=== PATIENT | female | born 1970 | race Caucasian/White ===

== ENCOUNTER 2022-12-05 16:53 | Emergency (ER) | payer OTHER, MEDICAID, SELFPAY ==
[2022-12-05 17:52] VITALS: BP 162/84; PULSE 88; RESP 16; TEMP 36.3; O2SAT 97; BMI 27.5
--- NOTE | 2022-12-05 17:52 | ED.ABDPAIN ---
HPI - Abdominal Pain General Chief Complaint: Back Pain/Injury Stated Complaint: R flank pain, seen at [facility] Related Data Allergies Allergy/AdvReac Type Severity Reaction Status Date / Time acetaminophen [From Percocet] Allergy Palpitation Verified 12/05/22 17:56 s aripiprazole [From Abilify] Allergy Unknown Verified 12/05/22 17:57 oxycodone [From Percocet] Allergy Palpitation Verified 12/05/22 17:56 s [facility] Social History Social History Advance Directives: No Advance Directives Information Provided: No Physical Exam ED Vital Signs: BMI result Body Mass Index 27.5 Course Course Course Narrative: RME: 52yo F c/o R flank pain x yesterday. Was seen at [facility] d/c'd around 1pm, states given multiple pain medications and had CT that showed stone inside kidney otherwise unremarkable. actively vomiting & dry heaving during triage Labs, UA ordered, Records requested from [facility] Full HPI, ROS and PE to be performed by primary ED provider. Medical Decision Making Lab Data 12/05/22 19:13 12/05/22 19:13 Labs: Lab Results 12/05/22 Range/Units 19:13 WBC 10.8 (4.8-10.8) X10*3/uL RBC 4.69 (4.20-5.50) X10*6/uL Hgb 14.0 (12.0-16.0) g/dl Hct 40.6 (37.0-47.0) % MCV 86.6 (80.0-98.0) fL MCH 29.9 (27.0-33.0) pg MCHC 34.5 (31.0-35.0) g/dl RDW 13.9 (11.0-16.0) % Plt Count 245 (160-400) X10*3/uL MPV 10.6 (9.4-12.3) fL Immature Gran % (Auto) 0.4 (0.0-0.4) % Neut % (Auto) 81.7 H (45-73) % Lymph % (Auto) 13.8 L (20-40) % Kingfisher % (Auto) 3.6 (2-11) % Eos % (Auto) 0.3 (0-4) % Baso % (Auto) 0.2 (0-2) % Lymph # (Auto) 1.5 (1.2-4.9) X10*3/uL Kingfisher # (Auto) 0.4 (0.1-1.2) X10*3/uL Eos # (Auto) 0.0 (0.0-0.4) X10*3/uL Baso # (Auto) 0.0 (0.0-0.2) X10*3/uL Abs Immat Gran (auto) 0.04 H (0.00-0.03) X10*3/uL Absolute Neuts (auto) 8.9 H (2.0-8.3) x10*3/uL Absolute Nucleated RBC 0.000 (0.0-0.012) X10*3/uL Nucleated RBC % (auto) 0.0 (0.0-0.2) /100WBC Sodium 138 (135-145) mmol/L Potassium 4.2 (3.3-5.1) mmol/L Chloride 105 (96-108) mmol/L Carbon Dioxide 23 (22-29) mmol/L Anion Gap 14 (12-20) BUN 9 (9-16) mg/dL Creatinine 0.73 (0.5-1.4) mg/dL Estim Creat Clear Calc 82.8 Estimated GFR > 60 Random Glucose 114 (60-115) mg/dL Calcium 9.8 (8.4-10.2) mg/dL Magnesium 1.9 (1.6-2.6) mg/dL Total Bilirubin 1.2 H (0.0-1.0) mg/dL Direct Bilirubin 0.3 (0.0-0.5) mg/dL AST 16 (5-31) U/L ALT 15 (0-31) U/L Alkaline Phosphatase 89 (39-117) U/L Total Protein 7.3 (6.5-8.0) g/dL Albumin 4.5 (3.5-5.0) g/dL Lipase 13 (8-78) U/L Discharge Plan Discharge Clinical Impression: Flank pain Patient Disposition: Left W/O Completing Treatment Discharge Date/Time: 12/05/22 23:46
[2022-12-05 19:20] LABS: MANUAL DIFF FLAG NO
[2022-12-05 19:21] LABS: Basophils Percent Auto 0.2 % (0-2); Eosinophils Percent Auto 0.3 % (0-4); Hematocrit 40.6 % (37.0-47.0); Imm Gran Abs Auto 0.04 X10*3/uL (0.00-0.03); Imm Gran Pct Auto 0.4 % (0.0-0.4); Lymphocytes Absolute Auto 1.5 X10*3/uL (1.2-4.9); Lymphocytes Percent Auto 13.8 % (20-40); Mean Corpuscular HGB Conc 34.5 g/dl (31.0-35.0); Mean Corpuscular Hemoglobin 29.9 pg (27.0-33.0); Mean Corpuscular Volume 86.6 fL (80.0-98.0); Mean Platelet Volume 10.6 fL (9.4-12.3); Monocytes Absolute Auto 0.4 X10*3/uL (0.1-1.2); Monocytes Percent Auto 3.6 % (2-11); Neutrophils Absolute Auto 8.9 x10*3/uL (2.0-8.3); Neutrophils Percent Auto 81.7 % (45-73); Platelet Count 245 X10*3/uL (160-400); Red Blood Count 4.69 X10*6/uL (4.20-5.50); Red Cell Distribution Width 13.9 % (11.0-16.0); White Blood Count 10.8 X10*3/uL (4.8-10.8)
[2022-12-05 19:35] LABS: Alanine Aminotransferase 15 U/L (0-31); Albumin Level 4.5 g/dL (3.5-5.0); Alkaline Phosphatase 89 U/L (39-117); Anion Gap 14 (12-20); Aspartate Amino Transferase 16 U/L (5-31); Bilirubin Direct 0.3 mg/dL (0.0-0.5); Bilirubin Total 1.2 mg/dL (0.0-1.0); Blood Urea Nitrogen 9 mg/dL (9-16); Calcium 9.8 mg/dL (8.4-10.2); Carbon Dioxide 23 mmol/L (22-29); Chloride 105 mmol/L (96-108); Creatinine Clr Calc Pharmacy 82.8; Estimated Glomerular Filt Rate > 60; Glucose Random 114 mg/dL (60-115); Lipase 13 U/L (8-78); Magnesium 1.9 mg/dL (1.6-2.6); Potassium 4.2 mmol/L (3.3-5.1); Sodium 138 mmol/L (135-145); Total Protein 7.3 g/dL (6.5-8.0)
== END 2022-12-05 23:46 | disposition left against medical advice (07) ==
PROVIDERS: Physician Assistant; Emergency Provider Emergency Medicine
DX: R10.9 Unspecified abdominal pain (principal); M54.50 Low back pain, unspecified; Z79.899 Other long term (current) drug therapy
CPT/HCPCS: 36415; 80048; 80076; 83690; 83735; 85025; 99281; 99283

== ENCOUNTER 2024-11-25 07:47 | Outpatient (AMB) | payer OTHER, MEDICAID, SELFPAY ==
--- OUTSIDE RECORDS SUMMARY | 2024-11-25 07:50 | XMS_ITS | Clinical Summary ---
Author Organization [address] [facility] Address [address] [place] [address] Phone Care Team Providers Care Ritual Circumciser Name Role Phone Mariana Child MD Primary Care Provider [phone] Allergies Active Allergy Reactions Criticality Noted Date Comments Aripiprazole 12/25/2022 Oxycodone-Acetaminophen 12/25/2022 Tramadol 12/25/2022 Medications celecoxib (CeleBREX) 200 mg capsule Take 1 capsule (200 mg total) by mouth 2 (two) times a day. 3 Active divalproex (DEPAKOTE) [address] tablet Take 1 tablet (500 mg total) by mouth 2 (two) times a day. 4 Active loratadine (CLARITIN) 10 mg tablet Take 1 tablet (10 mg total) by mouth 1 (one) time each day. 4 Active cyclosporine (RESTASIS OPHT) apply to the eye. Active meloxicam (Mobic) 15 mg tablet Take 1 tablet (15 mg total) by mouth 1 (one) time each day. 4 Active semaglutide (Rybelsus) 14 mg tablet Take 1 tablet (14 mg total) by mouth 1 (one) time each day. 3 Active acetaminophen (TYLENOL) 500 mg tablet Take 1 tablet (500 mg total) by mouth every 6 (six) hours if needed. 3 Active polyethylene glycol (MIRALAX) 17 gram packet Take 1 Packet by mouth daily as needed for Constipation. - Oral Active bismuth subsalicylate (PEPTO BISMOL) 262 mg chewable tablet Take 15 mL by mouth every 6 hours as needed for Indigestion for up to 10 days. - Oral Active montelukast (SINGULAIR) 10 mg tablet TAKE 1 TABLET BY MOUTH EVERYDAY AT BEDTIME 90 tablet 1 4 Active hydroxychloroquin e (PLAQUENIL) 200 mg tablet Take 1 tablet (200 mg total) by mouth 1 (one) time each day. 30 tablet 3 5 Active lamoTRIgine (LaMICtal) 150 mg tablet Take 1 tablet (150 mg total) by mouth 1 (one) time each day. 5 Active nicotine (NICODERM CQ) 14 mg/[address] 1 patch on the skin 1 (one) time each day at the same time. 30 each 2 5 Active albuterol HFA (PROAIR HFA ; PROVENTIL HFA ; VENTOLIN HFA) 90 mcg/actuation inhaler INHALE 2 PUFFS INTO THE LUNGS 4 TIMES DAILY NEEDED FOR SHORTNESS OF BREATH 18 each 3 5 Active pantoprazole (PROTONIX) 40 mg EC tablet Take 1 tablet (40 mg total) by mouth 1 (one) time each day. Do not crush, chew, or split. 90 each 1 5 025 Active cholecalciferol (VITAMIN D-3) 50 mcg (2,000 unit) tablet Take 1 tablet (2,000 Units total) by mouth 1 (one) time each day. 90 tablet 3 5 026 Active atorvastatin (LIPITOR) 80 mg tablet TAKE 1 TABLET BY MOUTH EVERY DAY 90 tablet 1 5 Active ezetimibe (ZETIA) 10 mg tablet Take 1 tablet (10 mg total) by mouth 1 (one) time each day. TAKE 1 TABLET BY MOUTH EVERY DAY 90 tablet 1 5 Active Active Problems Problem Noted Date Diagnosed Date Vitamin D deficiency 12/27/2022 Bipolar 1 disorder ([facility] V24, [facility] V28) Gastroesophageal reflux disease 12/25/2022 Mild intermittent asthma without complication Mixed hyperlipidemia 12/25/2022 Seizure disorder ([facility] V24, [facility] V28) 12/03 Sjogren syndrome with inflammatory arthritis ([facility] V24) 12/25/2022 Thyroid nodule 12/25/2022 Type 2 diabetes mellitus wit hout complication, without long-term current use of insulin ([facility] V24, [facility] V28) 12/25/2022 Encounters Date Type Department Care Team Description 09/07/2024 1:15 PM EDT Office Visit Orthopedic Surgery - [place] [address] [address] Killian Velasquez, DELISA Strain of long flexor muscle of toe at right ankle level (Primary Dx); Lumbosacral radiculopathy from Last 3 Months Immunizations Name Administration Dates Next Due Influenza Quadravalent, MDCK , 0.5ml, preservative free (Flucelvax) 6mo and older 12/25/2022 Influenza, Unspecified 11/08/2023 Pfizer SARS-CoV-2 COVID-19, mRNA, LNP-S, preservative free 11/08/2023 Pneumococcal Conjugate 11/28/2023 Tdap Tetanus diptheria acell ular pertussis (Boostrix; Adacel) 7yo and older 11/28/2023 Zoster recombinant (Shingrix ) 19yo and older 11/08/2023,06/22/2023,05/30/2023 Surgical History Surgery Date Site/Laterality Comments BELT ABDOMINOPLASTY PROCEDURE: HISTORICAL TUMMY TUCK ROTATOR CUFF REPAIR Right PROCEDURE: HISTORICAL ROTATOR CUFF REPAIR OTHER SURGICAL HISTORY PROCEDURE: HISTORY OTHER; COMMENT: head Medical History Medical History Date Comments Mixed hyperlipidemia 12/25/2022 DX:Mixed hy perlipidemia Gastroesophageal reflux disease 12/25/2022 DX:Gastroesophageal reflux disease Mild intermittent asthma wit hout complication 12/25/2022 DX:Mild intermittent asthma without complication Type 2 diabetes mellitus wit hout complication, without long-term current use of insulin ([facility] V24, [facility] V28) 12/25/2022 DX:Type 2 diabetes mellitus without complication, without long-term current use of insulin ([facility]) Thyroid nodule 12/25/2022 DX:Thyroid nodul e Family History Medical History Relation Name Comments No Known Problems Father Breast cancer Mother pancreas/ thyr oid Colon cancer Sister Relation Name Status Comments Brother x7 Father Mother Sister Alive Social History Tobacco Use Types Packs/Day Years Used Date Smoking Tobacco: Every Day Cigarettes 0.5 9.7 Started: 2016 Smokeless Tobacco: Never Alcohol Use Standard Drinks/Week Comments Not Currently 0 (1 standard drink = 0.6 oz pur e alcohol) Education Answer Date Recorded What is the highest level of school you have completed or the highest degree you have received? Associate degree: occupational, technical, or vocational program 06/23/2024 Comments Unknown Sex and Gender Information Value Date Recorded Sex Assigned at Not on file Legal Sex Female 7:31 PM EST Gender Identity Not on file Sexual Orientation Not on file Obstetrics History Last Filed Vital Signs Vital Sign Reading Time Taken Comments Blood Pressure 132/96 07/28/2024 3:39 PM EDT Pulse 105 07/28/2024 3:39 PM EDT Temperature 36.9 C (98.4 F) 07/28/2024 3:39 PM EDT Respiratory Rate - - Oxygen Saturation 96% 07/28/2024 3:39 PM EDT Inhaled Oxygen Concentration - - Weight 73.9 kg (163 lb) 08/24/2024 8:46 AM EDT Height 160 cm (5' 2.99 ) 08/24/2024 8:46 AM EDT Body Mass Index 28.88 08/24/2024 8:46 AM EDT Plan of Treatment Upcoming Encounters Date Type Department Care Team (Late st Contact Info) Description 12/23/2024 9:00 AM EDT Office Visit Internal Medicine - [place] 175 [facility] [address] [place] [phone] Mariana Child MD 175 [facility] [address] [place] [address] Health Maintenance Due Date Last Done Comments Diabetes: Annual Retina Eye Exam 1980 Hepatitis B Vaccines (1 of 3 - 19+ 3-dose series) 10/22/1987 Pneumococcal Vaccine: 50+ Years (1 of 2 - PCV) 10/22/1987 HIV Screening 02/03/2022 Medicare Annual Wellness Visit 02/03/2022 COVID-19 Vaccine (3 - Pfizer risk series) 12/06/2023 11/08/2023, 06/15/2023 Depression Screening 03/04/2024 Influenza Vaccine (#1) 2024 , 12/25/2022 Diabetes: Blood Sugar Contro l Test (HGBA1C) 01/08/2025 07/08/2024, 12/26/2022 Breast Cancer Screening 03/01/2025 03/01/2023 Diabetes: Annual Foot Exam 06/23/202506/23, 05/28/2023 Social Influencers of Health Screening 06/23/2025 06/23/2024 Diabetes: Annual Urine Albumin-Creatinine Ratio (uACR) 07/08/2025 07/08/2024, 12/26/2022 Diabetes: Annual GFR (Glomerular Filtration Rate) 07/08/2025 07/08/2024, 09/18/2023, 09/18/2023 Cervical Cancer Screening: HPV 02/15/2028 02/14/2023 Cholesterol Screening (Lipid Panel) 07/08/2029 07/08/2024, 12/26/2022 Colorectal Cancer Screening: Colonoscopy 11/11/2033 11/12/2023 DTaP,Tdap,and Td Vaccines (2 - Td or Tdap) 11/27/2033 11/28/2023 RSV Immunization Adult Patients (1 - 1-dose 75+ series) 10/22/2043 Hepatitis C Screening Completed 12/26/2022 Zoster Vaccines Completed 11/08/2023, 06/22/2023, 05/30/2023 HIB Vaccines Aged Out No longer eligi ble based on patient's age to complete this topic HPV Vaccines Aged Out No longer eligi ble based on patient's age to complete this topic Hepatitis A Vaccines Aged Out No long er eligible based on patient's age to complete this topic IPV Vaccines Aged Out No longer eligi ble based on patient's age to complete this topic MMR Vaccines Aged Out No longer eligi ble based on patient's age to complete this topic Meningococcal ACWY Vaccine Aged Out N o longer eligible based on patient's age to complete this topic Meningococcal B Vaccine Aged Out No l onger eligible based on patient's age to complete this topic RSV Immunization Patients Under 20 months Aged Out No longer eligible b ased on patient's age to complete this topic Varicella Vaccines Aged Out No longer eligible based on patient's age to complete this topic Procedures Procedure Name Priority Date/Time Associated Diagnosis Comments MICROALBUMIN CREATININE URINE RATIO Routine 07/08/2024 10:24 AM EDT Encounter for annual physical exam Type 2 diabetes mellitus without complication, without long-term current use of insulin ([facility] V24, [facility] V28) COMPREHENSIVE METABOLIC PANEL Routine 07/08/2024 10:24 AM EDT Encounter for annual physical exam Other fatigue HEMOGLOBIN A1C Routine 07/08/2024 10:24 AM EDT Encounter for annual physical exam Type 2 diabetes mellitus without complication, without long-term current use of insulin ([facility] V24, [facility] V28) LIPID PANEL WITH REFLEX TO DIRECT LDL Routine 07/08/2024 10:24 AM EDT Encounter for annual physical exam Mixed hyperlipidemia DIABETES FOOT EXAM Routine 05/28/2023 [facility] SCREENING DIGITAL Routine 03/01/2023 1:01 PM EST Encounter for screening mammogram for malignant neoplasm of breast HPV Routine 02/14/2023 HEPATITIS C SCREENING Routine 12/26/2022 from Last 3 Months or Most Recently Relevant to Health Maintenance Results * (ABNORMAL) Lipid panel with reflex to direct LDL (07/08/2024 10:24 AM EDT) Cholesterol 250(H) 0 - 200 mg/dL LAB CHEMISTRY METHOD 07/08/2024 5:12 PM EDT [facility] Triglycerides 160(H) 0 - 150 mg/dL LAB CHEMISTRY METHOD 07/08/2024 5:12 PM EDT [facility] HDL 53 >=40 mg/dL LAB CHEMISTRY METHOD 07/08/2024 5:12 PM EDT [facility] LDL Calculated 165(H) 0 - 100 mg/dL LAB CHEMISTRY METHOD 07/08/2024 5:12 PM EDT [facility] VLDL Cholesterol Chase 32 mg/dL LAB CHEMISTRY METHOD 07/08/2024 5:12 PM EDT [facility] Non HDL Chol. (LDL+VLDL) 197(H) <145 mg/dL LAB CHEMISTRY METHOD 07/08/2024 5:12 PM EDT [facility] Chol/HDL Ratio 4.7(H) 0.0 - 4.4 LAB CHEMISTRY METHOD 07/08/2024 5:12 PM EDT [facility] Blood Venous blood specimen / Unknown Venipuncture / Unknown 07/08/2024 10:24 AM EDT 07/08/2024 10:24 AM EDT Mariana Child MD LAB BLOOD ORDERABLES Final Resul t [facility] [address] [place] [address], * Microalbumin creatinine urine ratio (07/08/2024 10:24 AM EDT) Creatinine, Urine 162.0 mg/dL LAB CHEMISTRY METHOD 07/08/2024 4:32 PM EDT [facility] Microalb, Ur 9.5 0.0 - 29.0 mg/L LAB CHEMISTRY METHOD 07/08/2024 4:32 PM EDT [facility] Microalb/Creat Ratio 6 <30 mg/g creat LAB CHEMISTRY METHOD 07/08/2024 4:32 PM EDT [facility] Urine Urine specimen from urethra / Unknown Non-blood Collection / Unknown 07/08/2024 10:24 AM EDT 07/08/2024 10:24 AM EDT Mariana Child MD LAB URINE ORDERABLES Final Resul t Performing Organization Address City/[facility]/ZIP Co de Phone Number [facility] [address] [place] [address], [place] [phone] * Hemoglobin A1c (07/08/2024 10:24 AM EDT) Hemoglobin A1C 6.4 <6.5 % LAB CHEMISTRY METHOD 07/08/2024 9:26 PM EDT [facility] Mean Bld Glu Estim. 137 mg/dL LAB CHEMISTRY METHOD 07/08/2024 9:26 PM EDT [facility] Blood Venous blood specimen / Unknown Venipuncture / Unknown 07/08/2024 10:24 AM EDT 07/08/2024 10:24 AM EDT Mariana Child MD LAB BLOOD ORDERABLES Final Resul t Performing Organization Address City/[facility]/ZIP Co de Phone Number [facility] [address] [place] [address], [place] [phone] * (ABNORMAL) Comprehensive metabolic panel (07/08/2024 10:24 AM EDT) Pathologist [facility] Sodium 142 133 - 145 mmol/L LAB CHEMISTRY METHOD 07/08/2024 5:12 PM EDT [facility] Potassium 4.4 3.5 - 5.5 mmol/L LAB CHEMISTRY METHOD 07/08/2024 5:12 PM EDT [facility] Chloride 108 96 - 110 mmol/L LAB CHEMISTRY METHOD 07/08/2024 5:12 PM EDT [facility] CO2 26 21 - 32 mmol/L LAB CHEMISTRY METHOD 07/08/2024 5:12 PM EDT [facility] Anion Gap 8 3 - 11 LAB CHEMISTRY METHOD 07/08/2024 5:12 PM EDT [facility] Glucose 148(H) 70 - 100 mg/dL LAB CHEMISTRY METHOD 07/08/2024 5:12 PM [facility] BUN 12 5 - 25 mg/dL LAB CHEMISTRY METHOD 07/08/2024 5:12 PM [facility] Creatinine 0.81 0.50 - 1.10 mg/dL LAB CHEMISTRY METHOD 07/08/2024 5:12 PM [facility] eGFR 86 >=60 mL/min/1. 73m2 LAB CHEMISTRY METHOD 07/08/2024 5:12 PM [facility] Comment:Calculation based on the Chronic Kidney Disease Epidemiology Collaboration (CKD-EPI) equation refit without adjustment for race. BUN/Creatinine Ratio 14.8 LAB CHEMISTRY METHOD 07/08/2024 5:12 PM [facility] Calcium 9.1 8.5 - 10.5 mg/dL LAB CHEMISTRY METHOD 07/08/2024 5:12 PM [facility] AST (SGOT) 14 10 - 42 unit/L LAB CHEMISTRY METHOD 07/08/2024 5:12 PM [facility] ALT (SGPT) 25 10 - 60 unit/L LAB CHEMISTRY METHOD 07/08/2024 5:12 PM [facility] Alkaline Phosphatase 117 42 - 121 unit/L LAB CHEMISTRY METHOD 07/08/2024 5:12 PM [facility] Total Protein 6.8 6.0 - 8.0 g/dL LAB CHEMISTRY METHOD 07/08/2024 5:12 PM [facility] Albumin 3.9 3.2 - 5.0 g/dL LAB CHEMISTRY METHOD 07/08/2024 5:12 PM [facility] Total Bilirubin 1.0 0.0 - 1.4 mg/dL LAB CHEMISTRY METHOD 07/08/2024 5:12 PM [facility] Blood Venous blood specimen / Unknown Venipuncture / Unknown 07/08/2024 10:24 AM EDT 07/08/2024 10:24 AM EDT Mariana Child MD LAB BLOOD ORDERABLES Final Resul t [facility] [address] [place] [address], [place] [phone] * Diabetes Foot Exam (05/28/2023) Diabetes: Annual Foot Exam Abstracted Historical Provider HEALTH MAINTENANCE Final Result * ERICH SCREENING DIGITAL (03/01/2023 1:01 PM EST) Anatomical Region Laterality Modality Mammography 03/01/2023 9:23 AM EST Narrative 03/01/2023 1:01 PM EST [facility] Diagnostic Imaging Department [address] [place] [address] Patient: STEPHANIENANCY PRESTON /Age/Sex: 1970 - 52 - F Unit#: [id number] Location/Status: [facility] CLI Mnemonic/Ordering Site: DIGSC/SPMAM Ordering Physician: [place] SHARIF CNM [facility] Screening Digital - 03/01/23941 Report Status:Signed EXAM: [facility] Screening Digital EXAM DATE AND TIME: 03/01/2023 9:42 AM HISTORY: Screening. COMPARISON: No available comparison imaging. TECHNIQUE: Bilateral digital breast tomosynthesis was performed in the CC and MLO projections. Computer aided detection with WirelessGate 3D 3.1 was employed. TISSUE DENSITY: c. The breasts are heterogeneously dense, which may obscure small masses. FINDINGS: No suspicious masses, grouped microcalcifications, or areas of architectural distortion are seen. Few round microcalcifications are scattered bilaterally. A biopsy marker is seen in the inferior right breast. The skin and vascularity are unremarkable. IMPRESSION: No mammographic evidence of malignancy is seen. A negative mammogram in the presence of a clinically suspicious palpable abnormality does not preclude the possibility of malignancy or alter the indications for biopsy. BI-RADS: Category 2: Benign RECOMMENDATION(S): 1: Routine screening mammogram BILATERAL in 1 year. Dictating Physician: TRICIA MANN MD Electronically Signed by: TRICIA MANN MD Dic Date/Time: 03/01/23 130 Sign date/Time: 03/01/23 130 Procedure Note Tricia Mann MD - 04/09/2023 [facility] Diagnostic Imaging Department [address] [place] [address] Patient: NANCY CANCHOLA PRESTON /Age/Sex: 1970 - 52 - F Unit#: [id number] Location/Status: [facility] CLI Mnemonic/Ordering Site: [facility] Ordering Physician: [place] SHARIF CNM [facility] Screening Digital - 03/01/23 - 0942 Report Status:Signed EXAM: [facility] Screening Digital EXAM DATE AND TIME: 03/01/2023 9:42 AM HISTORY: Screening. COMPARISON: No available comparison imaging. TECHNIQUE: Bilateral digital breast tomosynthesis was performed in the CCand MLO projections. Computer aided detection with iCAD Tangled 3D 3.1was employed. TISSUE DENSITY: c. The breasts are heterogeneously dense, which mayobscure small masses. FINDINGS: No suspicious masses, grouped microcalcifications, or areas ofarchitectural distortion are seen. Few round microcalcifications are scatteredbilaterally. A biopsy marker is seen in the inferior right breast. The skin and vascularity are unremarkable. IMPRESSION: No mammographic evidence of malignancy is seen. A negative mammogram in the presence of a clinically suspicious palpable abnormality does not preclude the possibility of malignancy or alter the indications for biopsy. BI-RADS: Category 2: Benign RECOMMENDATION(S): 1: Routine screening mammogram BILATERAL in 1 year. Dictating Physician: TRICIA MANN MD Electronically Signed by: TRICIA MANN MD Dic Date/Time: 03/01/23 1301 Sign date/Time: 03/01/23 1301 [place] [facility] IMG BI PROCEDURES Final Resul t * Cervical Cancer Screening: HPV (02/14/2023) [facility] Cervical Cancer Screening: HPV Negative, Abstracted Historical Provider HEALTH MAINTENANCE Final Result * Hepatitis C Screening (12/26/2022) [facility] Hepatitis C Screening Abstracted Historical Provider HEALTH MAINTENANCE Final Result from Last 3 Months or Most Recently Relevant to Health Maintenance Insurance [address] [address] [employer] on file [place] Care Teams Ritual Circumciser Relationship Specialty Start Date End Date Mariana Child MD [address] [place] [phone] PCP - General 12/06/22
--- NOTE | 2024-11-25 07:52 | MHC.OFFVIS ---
Vital Signs 11/25/24 07:53 Height 5 ft 3 in Weight 166 lb BMI 29.4 BP 120/87 Blood Pressure Location Lt brachial Position Sitting Pulse 95 Pulse Oximetry (%) 96 Oxygen Delivery Method Room Air Intake Visit Reasons: Gastroesophageal reflux disease (GERD) Intake Note: Patient new consult for GERD. Patient cc: vomiting her acids from her stomach, abdominal pain/discomfort and bloating, acid reflux with burning sensation, diarrhea with yellow color, Category Development Manager Required: No Accompanied by: Self / Same As Patient Allergies aripiprazole (From Abilify) Allergy (Verified 11/25/24 07:51) Unknown oxycodone (From Percocet) Allergy (Verified 11/25/24 07:51) Palpitations tramadol Adverse Reaction (Intermediate, Verified 11/25/24 08:56) Palpitations Medication List - Last Reconciled 11/25/24 by lGoria Nolen CNP albuterol sulfate 90 mcg/actuation inhalation atorvastatin 80 mg PO DAILY celecoxib 200 mg PO DAILY PRN divalproex 250 mg PO BID ergocalciferol (vitamin D2) 1,250 mcg PO QWEEK ezetimibe (Zetia) 10 mg PO DAILY hydroxychloroquine 200 mg PO BID lamotrigine 100 mg PO DAILY semaglutide (Rybelsus) 14 mg PO QAM tobramycin-dexamethasone 0.3-0.1 % drps ophthalmic (eye) HPI HPI Gastroesophageal reflux disease (GERD): Details: Patient is a 54-year-old female with PMH of bipolar, asthma, hyperlipidemia, diabetes, seizure disorder, Sjogren's disorder and GERD. Referred by PCP for further evaluation for GERD. She reports long-standing history of reflux symptoms, ongoing since early adulthood, currently worsened over the past year. Reports daily epigastric pain and burning, primarily midline and exacerbated with eating and swallowing; describes discomfort as a pressure sensation and rates associated pain as severe when exacerbated. Notably, swallowing is intact but food passage through lower esophagus into stomach is painful, described as ?closing in.? Associated with frequent episodes of yellow, acidic regurgitation and immediate-onset, yellow diarrhea after consuming solids?often limiting intake to saltines during flares. Symptoms worsened with recent medication changes; omeprazole provided better symptom control previously than pantoprazole, which aggravated GI symptoms. All psychiatric medications, including Depakote and Lamictal, are currently held due to exacerbation of GI upset upon ingestion. Reports similar worsening with some pain meds. Symptoms led to one episode of dehydration requiring walk-in treatment approx. six weeks ago. Colonoscopy and EGD two years ago were reportedly normal ( completed in [place]) Surgical removal of gallbladder in 2019 for cholelithiasis. Reports Sj?gren's, diabetes, hyperlipidemia, history of joint pain requiring intermittent Celebrex (meloxicam discontinued due to GI intolerance). Lifestyle includes slow digestion, avoids pork, moderate intake of rice, chicken, fish, legumes, starchy root vegetables, fruit as tolerated, but restricts certain foods that worsen symptoms. Hydrates mostly with soda and powder-based orange beverage; variable water intake. Patient denies: fever/chills, n/v, dysphasia, unintentional wt loss or melena/hematochezia. Social hx: -diet: Avoids pork, tolerates rice, chicken, fish, beans, starchy root veg, fruits (banana, plum, grape), strawberries, tre (limited due to diabetes). [place] limited, triggers pain. Sometimes subsists on saltines. High fiber intake variable. -denies ETOH use -denies recreational drug use -current smoker, pack last 3 days - family hx as below -denies personal hx of CA -denies significant cardiopulmonary history -tolerated anesthesia in the past without difficulty. [facility] Medical History (Updated 11/25/24 @ 17:56 by Gloria Nolen CNP) Chronic GERD Diarrhea Surgical History (Updated 11/25/24 @ 18:04 by Gloria Nolen CNP) History of cholecystectomy Hx of repair of right rotator cuff Hx of abdominoplasty Family History (Updated 11/25/24 @ 08:57 by Gloria Nolen CNP) Mother Breast CA Thyroid disease Pancreas (digestive gland) works poorly Pancreatic cancer Sister Colon cancer Social History Household Members: Family Patient Tobacco Use Status: Current everyday Tobacco user Tobacco use type: Cigarette Review of Systems Const Reports as per HPI ENT Reports as per HPI Card Reports as per HPI Resp Reports as per HPI GI Reports as per HPI Reports as per HPI Physical Exam Vital Signs: Last Vital Signs Pulse 95 11/25/24 07:53 BP 120/87 11/25/24 07:53 Pulse Ox 96 11/25/24 07:53 Oxygen Delivery Method Room Air 11/25/24 07:53 BMI result Body Mass Index 29.4 Const General: healthy appearing, no acute distress and well developed Nutritional Appearance: average body habitus Orientation/consciousness: patient oriented x3 HEENT Head: Yes normal to inspection, Yes normocephalic and Yes atraumatic Face and sinus: Yes normal facial exam Mouth: Normal oral and palatal mucosa present Teeth and gingiva: fair dentition Throat: Yes posterior oropharynx normal Eyes General: appearance normal, both eyes and all related structures Neck Neck: Yes normal visual inspection Lymphatic: no lymphadenopathy noted Resp Effort & Inspection: normal respiratory effort, able to speak in complete sentences, no tracheal deviation and symmetric chest movement Cardio Jugular venous distension: no JVD GI Inspection: Yes normal to inspection and No distended Palpation (GI): Soft to palpation, not firm, nontender and No hepatosplenomegaly present Auscultation: normal bowel sounds Neuro General: patient oriented x3 Gait exam (Neuro): Normal gait present Psych Appearance: grossly normal Mental Status: mental status grossly normal Speech and movement: Normal speech and movement present Affect: normal affect Attitude: cooperative Thought process: Normal thought process present Thought content: Normal thought content present Insight: Good insight present (Psych) Judgement: Good judgement present (Psych) Assessment & Plan Assessment & Plan (1) Diarrhea: Code(s): R19.7 - Diarrhea, unspecified Category: Medical Qualifiers: Diarrhea type: unspecified type Qualified Code(s): R19.7 - Diarrhea, unspecified Plan: Post-cholecystectomy state, yellow postprandial diarrhea, inability to tolerate food, one episode of dehydration, no blood in stool. DDX: Bile acid malabsorption post-cholecystectomy VS Infectious VS inflammatory diarrhea (IBD less likely w/ normal colonoscopy) VS Medication-induced GI intolerance Additional Testing: - Stool studies: WBC, culture, C. diff PCR, parasites, calprotectin - Screening labs: celiac serology (tTG IgA), CBC, CMP, ESR, CRP Medication Management: - None new, pending results; avoid triggers - consider bile acid sequestrants if workup unyielding Lifestyle Recommendations: - Hydrate w/ water - Maintain balanced, high-fiber diet as tolerated - Avoid foods known to worsen diarrhea (pork, corn) Follow-Up: - Will review stool labs (2) Chronic GERD: Code(s): K21.9 - Gastro-esophageal reflux disease without esophagitis Category: Medical Plan: Chronic w/ recurrent pain with swallowing, shweta. lower esophageal/stomach transit; prior EGD, no overt oropharyngeal findings, no food impaction. DDX; Peptic ulcer disease (NSAID-related, H. pylori,) VS Esophageal motility disorder or stricture VS poorly controlled GERD Additional Testing: -H pylori stool testing - Upper GI series with barium swallow to assess esophageal/gastric motility and anatomy - Pending outside endoscopy records for further assessment Medication Management: - Resume omeprazole after testing Lifestyle Recommendations: - Continue soft diet/food avoidance as tolerated - Monitor for progressive obstruction or significant weight loss Follow-Up: - To review upper GI series, or sooner for acute symptoms Plan Follow-up 6 weeks or sooner as needed Time: I spent a total of 45 minutes on the date of encounter which includes: Preparing to see the patient (reviewed previous documentation, test results and medical history) Performing a medically appropriate exam and/or evaluation Ordering medications, tests, and procedures Documenting clinical information in the health record Orders: Orders Transglutaminase IgA Today R19.7 - Diarrhea, unspecified Calprotectin, Fecal Today R19.7 - Diarrhea, unspecified Complete Blood Count Auto Diff Today R19.7 - Diarrhea, unspecified Comprehensive [place]. Panel Fast Today R19.7 - Diarrhea, unspecified Lipase Today R19.7 - Diarrhea, unspecified Ova and Parasite Today R19.7 - Diarrhea, unspecified H pylori Ag Stool Today R19.7 - Diarrhea, unspecified Leukocytes Stool Qualitative Today R19.7 - Diarrhea, unspecified C Reactive Protein Today R19.7 - Diarrhea, unspecified Fecal Fat Qualitative Today R19.7 - Diarrhea, unspecified CDiff Gene PCR Today R19.7 - Diarrhea, unspecified GI Panel Today R19.7 - Diarrhea, unspecified FL upper GI w air w Ba Swallow Today K21.9 - Gastro-esophageal reflux disease without esophagitis, R13.10 - Dysphagia, unspecified Medications: New omeprazole Take one tablet daily. Best taken 30 minutes before meal 40 mg PO DAILY 90 caps 1RF Coding Level of Care Code New Pt New Pt Level 4 (10517) Patient Type New Diagnoses Diarrhea, unspecified type R19.7 Diarrhea type: unspecified type Chronic GERD K21.9
[2024-11-25 07:53] VITALS: BP 120/87; PULSE 95; O2SAT 96; BMI 29.4
== END 2024-11-25 09:19 | disposition home or self-care (01) ==
LOC: HO.HGI 07:47
PROVIDERS: Visit Provider Nurse Practitioner Family
DX: R19.7 Diarrhea, unspecified (principal); K21.9 Gastro-esophageal reflux disease without esophagitis
CPT/HCPCS: 99204

== ENCOUNTER 2024-11-25 07:47 | Outpatient (REF) | payer OTHER, MEDICAID, SELFPAY ==
[2024-11-25 09:51] LABS: MANUAL DIFF FLAG NO
[2024-11-25 11:08] LABS: Hematocrit 43.4 % (37.0-47.0); Hemoglobin 14.8 g/dl (12.0-16.0); Imm Gran Abs Auto 0.02 X10*3/uL (0.00-0.03); Imm Gran Pct Auto 0.2 % (0.0-0.4); Lymphocytes Absolute Auto 2.6 X10*3/uL (1.2-4.9); Mean Corpuscular HGB Conc 34.1 g/dl (31.0-35.0); Mean Corpuscular Hemoglobin 30.0 pg (27.0-33.0); Mean Corpuscular Volume 87.9 fL (80.0-98.0); NRBC Abs Auto 0.000 X10*3/uL (0.0-0.012); NRBC Pct Auto 0.0 /100WBC (0.0-0.2); Platelet Count 276 X10*3/uL (160-400); Red Blood Count 4.94 X10*6/uL (4.20-5.50); White Blood Count 9.7 X10*3/uL (4.8-10.8)
[2024-11-25 11:43] LABS: Alanine Aminotransferase 14 U/L (0-31); Albumin Level 4.6 g/dL (3.5-5.0); Alkaline Phosphatase 112 U/L (39-117); Anion Gap 13 (12-20); Aspartate Amino Transferase 19 U/L (5-31); Blood Urea Nitrogen 10 mg/dL (9-16); Calcium 9.9 mg/dL (8.4-10.2); Carbon Dioxide 26 mmol/L (22-29); Chloride 106 mmol/L (96-108); Estimated Glomerular Filt Rate > 60; Lipase 12 U/L (8-78); Potassium 4.2 mmol/L (3.3-5.1); Sodium 141 mmol/L (135-145); Total Protein 7.0 g/dL (6.5-8.0)
== END 2024-11-25 07:48 | disposition home or self-care (01) ==
LOC: HO.LAB 07:47
PROVIDERS: Visit Provider Nurse Practitioner Family
DX: K21.9 Gastro-esophageal reflux disease without esophagitis (principal); R19.7 Diarrhea, unspecified; R13.10 Dysphagia, unspecified
CPT/HCPCS: 36415; 80053; 83690; 85025; 86140; 86364

== ENCOUNTER 2024-11-27 12:40 | Outpatient (REF) | payer OTHER, MEDICAID, SELFPAY ==
--- OUTSIDE RECORDS SUMMARY | 2024-11-27 14:08 | XMS_ITS | Clinical Summary ---
Author Organization [address] [facility] Address [address] [place] [address] Phone Care Team Providers Care Vocational Aide Name Role Phone Mariana Child MD Primary Care Provider [phone] Allergies Active Allergy Reactions Criticality Noted Date [...] Vitamin D deficiency 12/27/2022 Bipolar 1 disorder ([facility] V24, [facility] V28) Gastroesophageal reflux disease 12/25/2022 Mild intermittent asthma without complication Mixed hyperlipidemia 12/25/2022 Seizure disorder ([facility] V24, [facility] V28) 12/03 Sjogren syndrome with inflammatory arthritis ([facility] V24) 12/25/2022 Thyroid nodule 12/25/2022 Type 2 diabetes mellitus wit hout complication, without long-term current use of insulin ([facility] [place]24, [facility] [place] 12/25/2022 Encounters Date Type Department Care Team Description 09/07/2024 1:15 PM EDT Office Visit Orthopedic Surgery - [place] [address] [address] Killian Velasquez, DELISA Strain of [...] complication, without long-term current use of insulin ([facility] V24, [facility] V28) 12/25/2022 DX:Type 2 diabetes mellitus without complication, without long-term current use of insulin ([facility]) Thyroid nodule 12/25/2022 DX:Thyroid nodul e Family [...] AM EDT Office Visit Internal Medicine - [place] 175 [facility] [address] [place] [phone] Mariana Child MD [address] [facility] [address] [place] [address] Health Maintenance Due Date Last [...] complication, without long-term current use of insulin ([facility] V24, [facility] V28) COMPREHENSIVE METABOLIC PANEL Routine 07/08/2024 10:24 AM EDT Encounter for annual physical exam Other fatigue HEMOGLOBIN A1C Routine 07/08/2024 10:24 AM EDT Encounter for annual physical exam Type 2 diabetes mellitus without complication, without long-term current use of insulin ([facility] V24, [facility] V28) LIPID PANEL WITH REFLEX TO DIRECT LDL Routine 07/08/2024 10:24 AM EDT Encounter for annual physical exam Mixed hyperlipidemia DIABETES FOOT EXAM Routine 05/28/2023 [facility] SCREENING DIGITAL Routine 03/01/2023 1:01 [...] LAB CHEMISTRY METHOD 07/08/2024 5:12 PM EDT [facility] Triglycerides 160(H) 0 - 150 mg/dL LAB CHEMISTRY METHOD 07/08/2024 5:12 PM EDT [facility] HDL 53 >=40 mg/dL LAB CHEMISTRY METHOD 07/08/2024 5:12 PM EDT [facility] LDL Calculated 165(H) 0 - 100 mg/dL LAB CHEMISTRY METHOD 07/08/2024 5:12 PM EDT [facility] VLDL Cholesterol [place] 32 mg/dL LAB CHEMISTRY METHOD 07/08/2024 5:12 PM EDT [facility] Non HDL Chol. (LDL+VLDL) 197(H) <145 mg/dL LAB CHEMISTRY METHOD 07/08/2024 5:12 PM EDT [facility] Chol/HDL Ratio 4.7(H) 0.0 - 4.4 LAB CHEMISTRY METHOD 07/08/2024 5:12 PM EDT [facility] Blood Venous blood specimen / Unknown Venipuncture / Unknown 07/08/2024 10:24 AM EDT 07/08/2024 10:24 AM EDT Mariana Child MD LAB BLOOD ORDERABLES Final Resul t [facility] [address] [place] [address], * Microalbumin creatinine urine ratio (07/08/2024 10:24 AM EDT) Creatinine, Urine 162.0 mg/dL LAB CHEMISTRY METHOD 07/08/2024 4:32 PM EDT [facility] Microalb, Ur 9.5 0.0 - 29.0 mg/L LAB CHEMISTRY METHOD 07/08/2024 4:32 PM EDT [facility] Microalb/Creat Ratio 6 <30 mg/g creat LAB CHEMISTRY METHOD 07/08/2024 4:32 PM EDT [facility] Urine Urine specimen from urethra / Unknown Non-blood Collection / Unknown 07/08/2024 10:24 AM EDT 07/08/2024 10:24 AM EDT Mariana Child MD LAB URINE ORDERABLES Final Resul t Performing Organization Address City/[facility]/ZIP Co de Phone Number [facility] [address] [place] [address], [place] [phone] * Hemoglobin A1c (07/08/2024 10:24 AM EDT) Hemoglobin A1C 6.4 <6.5 % LAB CHEMISTRY METHOD 07/08/2024 9:26 PM EDT [facility] Mean Bld Glu Estim. 137 mg/dL LAB CHEMISTRY METHOD 07/08/2024 9:26 PM EDT [facility] Blood Venous blood specimen / Unknown Venipuncture / Unknown 07/08/2024 10:24 AM EDT 07/08/2024 10:24 AM EDT Mariana Child MD LAB BLOOD ORDERABLES Final Resul t Performing Organization Address City/[facility]/ZIP Co de Phone Number [facility] [address] [place] [address], [place] [phone] * (ABNORMAL) Comprehensive metabolic panel (07/08/2024 10:24 AM EDT) Pathologist [facility] Sodium 142 133 - 145 mmol/L LAB CHEMISTRY METHOD 07/08/2024 5:12 PM EDT [facility] Potassium 4.4 3.5 - 5.5 mmol/L LAB CHEMISTRY METHOD 07/08/2024 5:12 PM EDT [facility] Chloride 108 96 - 110 mmol/L LAB CHEMISTRY METHOD 07/08/2024 5:12 PM EDT [facility] CO2 26 21 - 32 mmol/L LAB CHEMISTRY METHOD 07/08/2024 5:12 PM EDT [facility] Anion Gap 8 3 - 11 LAB CHEMISTRY METHOD 07/08/2024 5:12 PM EDT [facility] Glucose 148(H) 70 - 100 mg/dL LAB CHEMISTRY METHOD 07/08/2024 5:12 PM [facility] BUN 12 5 - 25 mg/dL LAB CHEMISTRY METHOD 07/08/2024 5:12 PM [facility] Creatinine 0.81 0.50 - 1.10 mg/dL LAB CHEMISTRY METHOD 07/08/2024 5:12 PM [facility] eGFR 86 >=60 mL/min/1. 73m2 LAB CHEMISTRY METHOD 07/08/2024 5:12 PM [facility] Comment:Calculation based on the Chronic Kidney Disease Epidemiology Collaboration (CKD-EPI) equation refit without adjustment for race. BUN/Creatinine Ratio 14.8 LAB CHEMISTRY METHOD 07/08/2024 5:12 PM [facility] Calcium 9.1 8.5 - 10.5 mg/dL LAB CHEMISTRY METHOD 07/08/2024 5:12 PM [facility] AST (SGOT) 14 10 - 42 unit/L LAB CHEMISTRY METHOD 07/08/2024 5:12 PM [facility] ALT (SGPT) 25 10 - 60 unit/L LAB CHEMISTRY METHOD 07/08/2024 5:12 PM [facility] Alkaline Phosphatase 117 42 - 121 unit/L LAB CHEMISTRY METHOD 07/08/2024 5:12 PM [facility] Total Protein 6.8 6.0 - 8.0 g/dL LAB CHEMISTRY METHOD 07/08/2024 5:12 PM [facility] Albumin 3.9 3.2 - 5.0 g/dL LAB CHEMISTRY METHOD 07/08/2024 5:12 PM [facility] Total Bilirubin 1.0 0.0 - 1.4 mg/dL LAB CHEMISTRY METHOD 07/08/2024 5:12 PM [facility] Blood Venous blood specimen / Unknown Venipuncture / Unknown 07/08/2024 10:24 AM EDT 07/08/2024 10:24 AM EDT Mariana Child MD LAB BLOOD ORDERABLES Final Resul t [facility] [address] [place] [address], [place] [phone] * Diabetes Foot Exam (05/28/2023) Diabetes: Annual Foot Exam Abstracted Historical Provider HEALTH MAINTENANCE Final Result * ERICH SCREENING DIGITAL (03/01/2023 1:01 PM EST) Anatomical Region Laterality Modality Mammography 03/01/2023 9:23 AM EST Narrative 03/01/2023 1:01 PM EST [facility] Diagnostic Imaging Department [address] [place] [address] Patient: STEPHANIENANCY PRESTON /Age/Sex: 1970 - 52 - F Unit#: [id number] Location/Status: [facility] CLI Mnemonic/Ordering Site: DIGSC/SPMAM Ordering Physician: [place] SHARIF CNM [facility] Screening Digital - 03/01/23941 Report Status:Signed EXAM: [facility] Screening Digital EXAM DATE AND TIME: 03/01/2023 9:42 AM HISTORY: Screening. COMPARISON: No available comparison imaging. TECHNIQUE: Bilateral digital breast tomosynthesis was performed in the CC and MLO projections. Computer aided detection with [employer] 3D 3.1 was employed. TISSUE DENSITY: c. [...] Procedure Note Tricia Mann MD - 04/09/2023 [facility] Diagnostic Imaging Department [address] [place] [address] Patient: NANCY CANCHOLA PRESTON /Age/Sex: 1970 - 52 - F Unit#: [id number] Location/Status: [facility] CLI Mnemonic/Ordering Site: [facility] Ordering Physician: [place] SHARIF CNM [facility] Screening Digital - 03/01/23 - 0942 Report Status:Signed EXAM: [facility] Screening Digital EXAM DATE AND TIME: 03/01/2023 9:42 AM HISTORY: Screening. COMPARISON: No available comparison imaging. TECHNIQUE: Bilateral digital breast tomosynthesis was performed in the CCand MLO projections. Computer aided detection with [employer] 3D 3.1was employed. TISSUE DENSITY: c. The [...] t * Cervical Cancer Screening: HPV (02/14/2023) [facility] Cervical Cancer Screening: HPV Negative, Abstracted Historical Provider HEALTH MAINTENANCE Final Result * Hepatitis C Screening (12/26/2022) [facility] Hepatitis C Screening Abstracted Historical Provider HEALTH MAINTENANCE Final Result from Last 3 Months or Most Recently Relevant to Health Maintenance Insurance [address] [address] [facility] MEDICARE ADVANTAGE on file MEDICAID - [place] Care Teams Vocational Aide Relationship Specialty Start Date End Date Mariana Child MD [address] [place] [phone] PCP - General 12/06/22
[2024-11-27 14:15] LABS: CDiff Gene PCR NEGATIVE (Negative)
[2024-11-27 14:26] LABS: Leukocytes Stool Qualitative NEGATIVE (NEGATIVE)
[2024-11-28 10:04] LABS: E. coli EAEC Not Detected (Not Detect.); E. coli EPEC Not Detected (Not Detect.); E. coli ETEC Not Detected (Not Detect.); E. coli STEC Not Detected (Not Detect.); Shigella sp./EIEC Not Detected (Not Detect.)
[2024-12-04 04:18] LABS: Calprotectin, Fecal 6 mcg/g
== END 2024-11-27 12:41 | disposition home or self-care (01) ==
LOC: HO.LNP 12:40
PROVIDERS: Visit Provider Nurse Practitioner Family
DX: R19.7 Diarrhea, unspecified (principal)
CPT/HCPCS: 82705; 83993; 87338; 87493; 87507; 89055

== ENCOUNTER 2025-01-06 14:23 | Outpatient (AMB) | payer OTHER, MEDICAID, SELFPAY ==
--- OUTSIDE RECORDS SUMMARY | 2016-06-13 19:00 | XMS_ITS | Continuity of Care Document ---
Author Organization Hospital[facility] Medical Address [address] [place], [place] Phone Care Team Providers Care Cell Tender Helper Name Role Phone Francisco PEREZ, Joyce Unavailable Unavailable Procedures Procedure Date OFFICE/OUTPATIENT VISIT, NEW Advance Directives Directive Yes / No Effective Date File Name No Information Encounters Encounter Description Practice Location Reason(s) For Visit Diagnoses Date Provider OFFICE/OUTPATIE NT VISIT, NEW [facility] [address], [place], [place], [id number], [place] tel:[phone] [facility] AMB Surg No Information 2016 Francisco Cook. [address] [place], [address], [place]. tel:[phone] Family History Family Member Type Diagnosis Age At Onset No Information Payers Payer name Insurance type Covered libertarian ID Authoriza tisharlene(s) Medicare [id number] Medicaid [id number] Social History Type Description Quantity Date Captured Comments Sex Male Smoking Status No Information Chief Complaint And Reason For Visit No Information History Of Present Illness Encounter Date Complaint History Of Prese nt Illness No Information Instructions Date Instruction Additional Infor mation No Information Assessments Type Assessment Date No Information
--- NOTE | 2025-01-06 14:32 | A.OFFVIS_ITS ---
Vital Signs 01/06/25 14:35 Height 5 ft 3 in Weight 167 lb 8.821 oz BMI 29.7 BP 116/78 Blood Pressure Location Lt brachial Position Sitting Pulse 114 H Intake Visit Reasons: 6 week follow up Intake Note: Nancy presents in the office as a 6 week follow up. CC: She states that she gets pains in the stomach and lots of nause - wants to be given zofran. States she has diarrhea with everything that she eats. Training Personnel Supervisor Required: No Allergies aripiprazole (From Abilify) Allergy (Verified 01/06/25 14:35) Unknown oxycodone (From Percocet) Allergy (Verified 01/06/25 14:35) Palpitations tramadol Adverse Reaction (Intermediate, Verified 01/06/25 14:35) Palpitations HPI HPI 6 week follow up: Details: Patient is a 54-year-old female with PMH of bipolar, asthma, hyperlipidemia, diabetes, seizure disorder, Sjogren's disorder and GERD. F/u for persistent diarrhea after meals and reflux/nausea. Pt continues to experience diarrhea immediately after eating; remains asymptomatic when fasting. Reports increased stool frequency and urgency after consuming pork and fried foods, with somewhat less severe sxs after other meats. No clear dietary triggers otherwise identified. Nausea and reflux persist?no interval worsening or relief. Pt has been adherent to omeprazole 40mg QD for reflux; prior switch to pantoprazole provided no benefit, so reverted to omeprazole. Denies receiving results or scheduling confirmation for planned UGI series; no new interventions since last visit. No mention of adverse rxn to current therapies. Denies new GI sxs or recent hospitalizations [facility] Medical History (Updated 01/06/25 @ 17:15 by Gloria Nolen CNP) Dysphagia Chronic GERD Diarrhea Surgical History Hx of colonoscopy History of esophagogastroduodenoscopy (EGD) History of cholecystectomy Hx of repair of right rotator cuff Hx of abdominoplasty Family History Mother Breast CA Thyroid disease Pancreas (digestive gland) works poorly Pancreatic cancer Sister Colon cancer Social History Household Members: Family Patient Tobacco Use Status: Current everyday Tobacco user Tobacco use type: Cigarette Review of Systems Const Reports as per [facility] ENT Reports as per HPI Card Reports as per HPI Resp Reports as per HPI GI Reports as per HPI Reports as per HPI Physical Exam Vital Signs: Last Vital Signs Pulse 114 H 01/06/25 14:35 BP 116/78 01/06/25 14:35 BMI result Body Mass Index 29.7 Const General: healthy appearing, no acute distress and well developed Nutritional Appearance: average body habitus Orientation/consciousness: patient oriented x3 HEENT Head: Yes normal to inspection, Yes normocephalic and Yes atraumatic Face and sinus: Yes normal facial exam Eyes General: appearance normal, both eyes and all related structures Neck Neck: Yes normal visual inspection Resp Effort & Inspection: normal respiratory effort, able to speak in complete sentences and no tracheal deviation Auscultation: clear to auscultation bilaterally Cardio Jugular venous distension: no JVD GI Inspection: Yes normal to inspection, No distended, Yes obesity and Yes scar Palpation (GI): Soft to palpation, not firm, nontender and No hepatosplenomegaly present Auscultation: normoactive bowel sounds Neuro General: patient oriented x3 Gait exam (Neuro): Normal gait present Psych Appearance: grossly normal Mental Status: mental status grossly normal Speech and movement: Normal speech and movement present Affect: normal affect Attitude: cooperative Thought process: Normal thought process present Thought content: Normal thought content present Insight: Good insight present (Psych) Judgement: Good judgement present (Psych) Assessment & Plan Assessment & Plan (1) Chronic GERD: Code(s): K21.9 - Gastro-esophageal reflux disease without esophagitis Category: Medical Plan: Persistent reflux and nocturnal sx despite omeprazole 40mg QD; sx unchanged since last visit. PPI monotherapy insufficient, failed trial of pantoprazole, sxs may be related to structural abnormality (hiatal hernia) pending imaging. Additional testing: [facility]to eval for hiatal hernia or other anatomic contributors. Medications: Add famotidine 20mg BID (morning and evening) in addition to omeprazole 40mg QD. - Side effect monitoring: [employer] Continuous Process re potential headaches, dizziness. Lifestyle Recommendations: Strict avoidance of known dietary triggers?caffeine, alcohol, tobacco, carbonated beverages, high-fat and fried foods, overeating, late night meals. Avoid tight-fitting clothing, elevate HOB for nocturnal sx. Re-educate re seltzer/carbonation as potential trigger even if subjectively feels better. Referrals/Coordination: None at present; if large hiatal hernia demonstrated, consider surgical consult. Follow-Up Plan: Reassess in 3 mos or earlier if upper GI study indicates need for prompt intervention. (2) Diarrhea: Code(s): R19.7 - Diarrhea, unspecified Category: Medical Qualifiers: Diarrhea type: unspecified type Qualified Code(s): R19.7 - Diarrhea, unspecified Plan: Persistent, postprandial, triggered by fatty and fried foods, unchanged since last f/u. Normal labs and stool testing; sx profile suggests bile acid diarrhea secondary to cholecystectomy; inadequate relief w/ prior dietary mods. Additional testing: None at this time; fxn and structural etiologies excluded by prior w/u. Medications: Initiate cholestyramine 4g PO TID w/ meals; instruct to separate all other oral meds by at least 1 hr before or 4-6 hrs after each dose. - Side effect monitoring: [employer] Continuous Process re possible constipation, bloating. Lifestyle Recommendations: Continue diary of foods triggering diarrhea; avoid high-fat, fried foods and pork as identified triggers. Increase dietary fiber as tolerated. Handout provided on managing post-cholecystectomy diarrhea. Referrals/Coordination: None at this time. Follow-Up Plan: Reassess in 3 mos for response; sooner PRN for worsening sx or cholestyramine intolerance (3) Dysphagia: Code(s): R13.10 - Dysphagia, unspecified Category: Medical Qualifiers: Dysphagia type: unspecified Qualified Code(s): R13.10 - Dysphagia, unspecified Plan: Intermittent dysphagia and chest pressure with swallowing; uncertainty regarding size/significance of hiatal hernia (s/p prior conflicting findings). Awaiting UGI series/barium swallow to clarify anatomy. Additional testing: UGI series w/ swallow study scheduled for Apr?pt advised to confirm appt; obtain outside records from [facility] as able. Medications: None specific at this time. Lifestyle Recommendations: Continue current dietary modifications, avoid known triggers. Referrals/Coordination: Coordinate with radiology for record/appointment arabella fication; review outside hospital ([facility]) endoscopy results if available. Follow-Up Plan: Follow up after imaging completed for f/u and plan adjustment based on findings. Plan Follow-up in 3 months or sooner as needed Time: I spent a total of 30 minutes on the date of encounter which includes: Preparing to see the patient (reviewed previous documentation, test results and medical history) Performing a medically appropriate exam and/or evaluation Ordering medications, tests, and procedures Documenting clinical information in the health record Medications: New cholestyramine Take three times daily with meals. No meds 1 hr before/4-6 hr after dose 4 grams PO TID 239.4 grams 0RF famotidine (Pepcid) Take one tablet twice daily 20 mg PO BID 180 tabs 0RF Coding Level of Care Code Established Pt Est Pt Level 3 (98369) Patient Type Established Diagnoses Chronic GERD K21.9 Diarrhea, unspecified type R19.7 Diarrhea type: unspecified type Dysphagia, unspecified type R13.10 Dysphagia type: unspecified
[2025-01-06 14:35] VITALS: BP 116/78; PULSE 114; BMI 29.7
--- OUTSIDE RECORDS SUMMARY | 2025-01-06 17:33 | XMS_ITS | Encounter Summary ---
Author Organization [facility] Address [address] [place] [address] Care Team Providers Care Line Service Supervisor Name Role Phone Mariana Child MD Primary Care Provider [phone] Encounter Details Date Type Department Care Team (Late Contact Info) Description 12/24/2024 Results Follow-Up Internal Medicine - [place] [address] [place] [phone] Mariana Child MD [address] [place] [phone] Social History Tobacco Use Types Packs/Day Years Used Date Smoking Tobacco: Every Day Cigarettes 0.5 9.8 Started: 2015 Smokeless Tobacco: Never Alcohol Use Standard Drinks/Week [...] on file Sexual Orientation Not on file documented as of this encounter Plan of Treatment Upcoming Encounters Date Type Department Care Team (Late Contact Info) Description 04/06/2025 7:50 AM EST Office Visit [facility] [address] [place] [phone] Dane Jacobsen MD [address] [place] [address] [address] [place] [phone] 06/24/2025 9:15 AM EDT Office Visit Internal Medicine - [place] [address] [facility] [address] [place] [address] Mariana Child MD [address] [place] [phone] documented as of this encounter Visit Diagnoses Not on filedocumented in this encounter Care Teams Line Service Supervisor Relationship Specialty Start Date End Date Mariana Child MD [address] [phone] PCP - General 12/06/22 documented as of this encounter
--- OUTSIDE RECORDS SUMMARY | 2025-01-06 17:33 | XMS_ITS | Clinical Summary ---
Author Organization 175 [facility] Address [address] [place] [address] Phone Care Team Providers Care Um Nurse Name Role Phone Mariana Child MD Primary Care Provider [phone] Allergies Active Allergy Reactions Criticality Noted Date Comments Aripiprazole 12/25/2022 Oxycodone-Acetaminophen 12/25/2022 Tramadol 12/25/2022 Medications celecoxib (CeleBREX) 200 mg capsule Take 1 capsule (200 mg total) by mouth 2 (two) times a day. 12/26/19 Active divalproex (DEPAKOTE) [address] tablet Take 1 tablet (500 mg total) by mouth 2 (two) times a day. 08/22/19 Active loratadine (CLARITIN) 10 mg tablet Take 1 tablet (10 mg total) by mouth 1 (one) time each day. 08/26/19 Active cyclosporine (RESTASIS OPHT) apply to the eye. Active meloxicam (Mobic) 15 mg tablet Take 1 tablet (15 mg total) by mouth 1 (one) time each day. 05/31/19 Active semaglutide (Rybelsus) 14 mg tablet Take 1 tablet (14 mg total) by mouth 1 (one) time each day. 12/26/19 Active acetaminophen (TYLENOL) 500 mg tablet Take 1 tablet (500 mg total) by mouth every 6 (six) hours if needed. 12/26/19 23 Active polyethylene glycol (MIRALAX) 17 gram packet [...] MOUTH EVERYDAY AT BEDTIME 90 tablet 1 02/04/20 24 Active hydroxychloroquin e (PLAQUENIL) 200 mg tablet Take 1 tablet (200 mg total) by mouth 1 (one) time each day. 30 tablet 3 03/05/19 25 Active lamoTRIgine (LaMICtal) 150 mg tablet Take 1 tablet (150 mg total) by mouth 1 (one) time each day. 05/27/19 25 Active albuterol HFA (PROAIR HFA ; PROVENTIL HFA ; VENTOLIN HFA) 90 mcg/actuation inhaler INHALE 2 PUFFS INTO THE LUNGS 4 TIMES DAILY NEEDED FOR SHORTNESS OF BREATH 18 each 3 06/30/19 25 Active cholecalciferol (VITAMIN D-3) 50 mcg (2,000 unit) tablet Take 1 tablet (2,000 Units total) by mouth 1 (one) time each day. 90 tablet 3 07/10/19 25 026 Active atorvastatin (LIPITOR) 80 mg tablet TAKE 1 TABLET BY MOUTH EVERY DAY 90 tablet 1 09/01/19 25 Active ezetimibe (ZETIA) 10 mg tablet Take 1 tablet (10 mg total) by mouth 1 (one) time each day. TAKE 1 TABLET BY MOUTH EVERY DAY 90 tablet 1 09/01/19 25 Active omeprazole (PriLOSEC) [address] capsule Take 1 capsule (40 mg total) by mouth 1 (one) time each day. 11/28/19 24 Active fluticasone-salme terol (ADVAIR DISKUS) 250-50 mcg/dose diskus inhaler Inhale 1 puff by mouth 2 (two) times a day. Rinse mouth with water after use to reduce aftertaste and incidence of candidiasis. Do not swallow. 1 each 11 12/24/19 25 026 Active varenicline tartrate (CHANTIX JUSTIN) 0.5 mg (11)- 1 mg (42) tablet Take 0.5 mg by mouth 1 (one) time each day for 3 days (days 1-3), THEN 0.5 mg 2 (two) times a day for 4 days (days 4-7), THEN 1 mg 2 (two) times a day for 12 weeks. 53 tablet 1 12/24/19 25 026 Active nicotine (NICODERM CQ) 14 mg/[address] 1 patch on the skin 1 (one) time each day at the same time. 30 each 2 06/24/19 25 025 Discontin ued(Cost of medicatio n) pantoprazole (PROTONIX) 40 mg EC tablet Take 1 tablet (40 mg total) by mouth 1 (one) time each day. Do not crush, chew, or split. 90 each 1 07/09/19 25 025 Discontin ued(Formu alex change) Active Problems Problem Noted Date Diagnosed Date Smoking greater than 20 pack years 12/23/2024 Vitamin D deficiency 12/27/2022 Bipolar 1 disorder ([facility] V24, [facility] V28) Gastroesophageal reflux disease 12/25/2022 Mild intermittent asthma without complication Mixed hyperlipidemia 12/25/2022 Seizure disorder ([facility] V24, [facility] V28) 12/03 Sjogren syndrome with inflammatory arthritis ([facility] V24) 12/25/2022 Thyroid nodule 12/25/2022 Type 2 diabetes mellitus wit hout complication, without long-term current use of insulin ([facility] V24, [facility] V28) 12/25/2022 Encounters Date Type Department Care Team Description 12/24/2024 Results Follow-Up Internal Medicine - [address] [phone] Mariana Child MD 12/23/2024 9:00 AM EDT Office Visit Internal Medicine - [address] [phone] Mariana Child MD Gastroesophageal reflux disease, unspecified whether esophagitis present (Primary Dx); Type 2 diabetes mellitus without complication, without long-term current use of insulin ([facility] V24, [facility] V28); Mild intermittent asthma without complication; Tobacco dependency; Smoking greater than 20 pack years; Seizure disorder ([facility] V24, [facility] V28); Mixed hyperlipidemia; Sjogren syndrome with inflammatory arthritis ([facility] V24) from Last 3 Months Immunizations Immunization Administration Dates Next Due Influenza Quadravalent, MDCK [...] complication, without long-term current use of insulin ([facility] V24, [facility] V28) 12/25/2022 DX:Type 2 diabetes mellitus without complication, without long-term current use of insulin ([facility]) Thyroid nodule 12/25/2022 DX:Thyroid nodul e Family [...] Sign Reading Time Taken Comments Blood Pressure 138/82 12/23/2024 8:39 AM EDT Pulse 99 12/23/2024 8:39 AM EDT Temperature 36.2 C (97.1 F) 12/23/2024 8:39 AM EDT Respiratory Rate - - Oxygen Saturation 98% 12/23/2024 8:39 AM EDT Inhaled Oxygen Concentration - - Weight 74.4 kg (164 lb) 12/23/2024 8:39 AM EDT Height 160 cm (5' 2.99 ) 12/23/2024 8:39 AM EDT Body Mass Index 29.06 12/23/2024 8:39 AM EDT Plan of Treatment Upcoming Encounters Date Type Department Care Team (Late st Contact Info) Description 04/06/2025 7:50 AM EST Office Visit [facility] [address] [place] [address] [place] [phone] Dane Jacobsen MD [address] [place] [address] [address] [place] [phone] 06/24/2025 9:15 AM EDT Office Visit Internal Medicine - [place] [address] [place] [phone] Mariana Child MD [address] [place] [phone] Health Maintenance Due Date Last Done Comments Diabetes: Annual Retina Eye Exam 1978 Hepatitis B Vaccines (1 of 3 - 19+ 3-dose series) 10/22/1987 Pneumococcal Vaccine: 50+ Years (1 of 2 - PCV) 10/22/1987 RSV Immunization Adult Patients (1 - Risk 50-74 years 1-dose series) 2018 HIV Screening 02/03/2022 Medicare Annual Wellness Visit 02/03/2022 Depression Screening 03/04/2024 COVID-19 Vaccine (3 - 2024-2 6 season) 2024 11/08/2023, 06/15/2023 Influenza Vaccine (#1) 2024 , 12/25/2022 Breast Cancer Screening 03/01/2025 03/01/2023 Diabetes: Annual Foot Exam 06/23/202506/23, 05/28/2023 Diabetes: Blood Sugar Contro l Test (HGBA1C) 06/23/2025 12/23/2024, 07/08/2024, 12/26/2022 Social Influencers of Health Screening 06/23/2025 06/23/2024 Diabetes: Annual Urine Albumin-Creatinine Ratio (uACR) 07/08/2025 07/08/2024, 12/26/2022 Diabetes: Annual GFR (Glomerular Filtration Rate) 07/08/2025 07/08/2024, 09/18/2023, 09/18/2023 Cervical Cancer Screening: HPV 02/15/2028 02/14/2023 Cholesterol Screening (Lipid Panel) 07/08/2029 07/08/2024, 12/26/2022 Colorectal Cancer Screening: Colonoscopy 11/11/2033 11/12/2023 DTaP,Tdap,and Td Vaccines (2 - Td or Tdap) 11/27/2033 11/28/2023 Hepatitis C Screening Completed 12/26/2022 Zoster Vaccines [...] Procedure Name Priority Date/Time Associated Diagnosis Comments HEMOGLOBIN A1C Routine 12/23/2024 9:40 AM EDT Type 2 diabetes mellitus without complication, without long-term current use of insulin ([facility] V24, [facility] V28) MICROALBUMIN CREATININE URINE RATIO Routine 07/08/2024 10:24 AM EDT Encounter for annual physical exam Type 2 diabetes mellitus without complication, without long-term current use of insulin ([facility] V24, [facility] V28) COMPREHENSIVE METABOLIC PANEL Routine 07/08/2024 10:24 AM EDT Encounter for annual physical exam Other fatigue LIPID PANEL WITH REFLEX TO DIRECT LDL Routine 07/08/2024 10:24 AM EDT Encounter for annual physical exam Mixed hyperlipidemia DIABETES FOOT EXAM Routine 05/28/2023 [facility] SCREENING DIGITAL Routine 03/01/2023 1:01 PM EST Encounter for screening mammogram for malignant neoplasm of breast HPV Routine 02/14/2023 HEPATITIS C SCREENING Routine 12/26/2022 from Last 3 Months or Most Recently Relevant to Health Maintenance Results * Hemoglobin A1c (12/23/2024 9:40 AM EDT) Hemoglobin A1C 6.4 <6.5 % LAB CHEMISTRY METHOD 12/23/2024 9:14 PM EDT [facility] Mean Bld Glu Estim. 137 mg/dL LAB CHEMISTRY METHOD 12/23/2024 9:14 PM EDT [facility] Blood Venous blood specimen / Unknown Venipuncture / Unknown 12/23/2024 9:40 AM EDT 12/23/2024 9:40 AM EDT us Mariana Child MD LAB BLOOD ORDERABLES Final Resul t Performing Organization Address City/[facility]/ZIP Co de Phone Number [facility] [address] [place] [address], [place] [phone] * (ABNORMAL) Lipid panel with reflex to direct LDL (07/08/2024 10:24 AM EDT) Cholesterol 250(H) 0 - 200 mg/dL LAB CHEMISTRY METHOD 07/08/2024 5:12 PM EDT [facility] Triglycerides 160(H) 0 - 150 mg/dL LAB CHEMISTRY METHOD 07/08/2024 5:12 PM EDT [facility] HDL 53 >=40 mg/dL LAB CHEMISTRY METHOD 07/08/2024 5:12 PM EDT [facility] LDL Calculated 165(H) 0 - 100 mg/dL LAB CHEMISTRY METHOD 07/08/2024 5:12 PM EDT [facility] VLDL Cholesterol Chase 32 mg/dL LAB CHEMISTRY METHOD 07/08/2024 5:12 PM EDT [facility] Non HDL Chol. (LDL+VLDL) 197(H) <145 mg/dL LAB CHEMISTRY METHOD 07/08/2024 5:12 PM EDT [facility] Chol/HDL Ratio 4.7(H) 0.0 - 4.4 LAB CHEMISTRY METHOD 07/08/2024 5:12 PM EDT [facility] Blood Venous blood specimen / Unknown Venipuncture / Unknown 07/08/2024 10:24 AM EDT 07/08/2024 10:24 AM EDT Mariana Child MD LAB BLOOD ORDERABLES Final Resul t [facility] [address] [place] [address], [place] [phone] * Microalbumin creatinine urine ratio (07/08/2024 10:24 AM EDT) Creatinine, Urine 162.0 mg/dL LAB CHEMISTRY METHOD 07/08/2024 4:32 PM EDT [facility] Microalb, Ur 9.5 0.0 - 29.0 mg/L LAB CHEMISTRY METHOD 07/08/2024 4:32 PM EDT [facility] Microalb/Creat Ratio 6 <30 mg/g creat LAB CHEMISTRY METHOD 07/08/2024 4:32 PM EDT [facility] Urine Urine specimen from urethra / Unknown Non-blood Collection / Unknown 07/08/2024 10:24 AM EDT 07/08/2024 10:24 AM EDT Mariana Child MD LAB URINE ORDERABLES Final Resul t [facility] [address] [place] [address], * (ABNORMAL) Comprehensive metabolic panel (07/08/2024 10:24 AM EDT) Pathologist [facility] Sodium 142 133 - 145 mmol/L LAB CHEMISTRY METHOD 07/08/2024 5:12 PM [facility] Potassium 4.4 3.5 - 5.5 mmol/L LAB CHEMISTRY METHOD 07/08/2024 5:12 PM [facility] Chloride 108 96 - 110 mmol/L LAB CHEMISTRY METHOD 07/08/2024 5:12 PM [facility] CO2 26 21 - 32 mmol/L LAB CHEMISTRY METHOD 07/08/2024 5:12 PM [facility] Anion Gap 8 3 - 11 LAB CHEMISTRY METHOD 07/08/2024 5:12 PM [facility] Glucose 148(H) 70 - 100 mg/dL [...] MD LAB BLOOD ORDERABLES Final Resul t [facility] [address] [place] [address], * Diabetes Foot Exam (05/28/2023) Diabetes: Annual Foot Exam Abstracted us Historical Provider MD HEALTH MAINTENANCE Final Result * [facility] SCREENING DIGITAL (03/01/2023 1:01 PM EST) Anatomical Region Laterality Modality Mammography 03/01/2023 9:23 AM EST Narrative 03/01/2023 1:01 PM EST [facility] Diagnostic Imaging Department [address] [place] [address] Patient: STEPHANIENANCY /Age/Sex: 1970 - 52 - F Unit#: [id number] [facility] Mnemonic/Ordering Site: [facility] Ordering Physician: KY CHOUDHURY CNM Erich Screening Digital - 03/01/23941 Report Status:Signed EXAM: [facility] Screening Digital EXAM DATE AND TIME: 03/01/2023 9:42 AM HISTORY: Screening. COMPARISON: No available comparison imaging. TECHNIQUE: Bilateral digital breast tomosynthesis was performed in the CC and MLO projections. Computer aided detection with [employer] 3D 3.1 was employed. TISSUE DENSITY: c. [...] Procedure Note Tricia Mann MD - 04/09/2023 [facility] Diagnostic Imaging Department [address] [place] [address] Patient: STEPHANIENANCYZUHAIR JOHNSTON /Age/Sex: 1970 - 52 - F Unit#: [id number] Location/Status[facility] Mnemonic/Ordering Site: [facility] Ordering Physician: KY CHOUDHURY CNM [facility] Screening Digital - 03/01/23941 Report Status:Signed EXAM: [facility] Screening Digital EXAM DATE AND TIME: 03/01/2023 9:42 AM HISTORY: Screening. COMPARISON: No available comparison imaging. TECHNIQUE: Bilateral digital breast tomosynthesis was performed in the CCand MLO projections. Computer aided detection with iCAD Pro[employer] AI 3D 3.1was employed. TISSUE DENSITY: c. The [...] 03/01/23 1301 Sign date/Time: 03/01/23 1301 Ky Choudhury CN IMG BI PROCEDURES Final Resul t * Cervical Cancer Screening: HPV (02/14/2023) Pathologist [facility] Cervical Cancer Screening: HPV Negative, Abstracted Historical Provider HEALTH MAINTENANCE Final Result * Hepatitis C Screening (12/26/2022) Pathologist [facility] Hepatitis C Screening Abstracted Historical Provider HEALTH MAINTENANCE Final Result from Last 3 Months or Most Recently Relevant to Health Maintenance Insurance [facility] MEDICARE ADVANTAGE on file [id number] Care Teams Um Nurse Relationship Specialty Start Date End Date Mariana Child MD [address] [place] [phone] PCP - General 12/06/22
== END 2025-01-06 15:13 | disposition home or self-care (01) ==
LOC: HO.HGI 14:23
PROVIDERS: Visit Provider Nurse Practitioner Family
DX: K21.9 Gastro-esophageal reflux disease without esophagitis (principal); R19.7 Diarrhea, unspecified; R13.10 Dysphagia, unspecified
CPT/HCPCS: 99213